=== PATIENT | male | born 1975 | race Caucasian/White ===

== ENCOUNTER 2017-06-11 22:45 | Emergency (ER) | payer BC ==
[2017-06-11] MEDS ORDERED: Labetalol 100 MG Tab ONE (23:18)
[2017-06-12 06:39] LABS: CHLORIDE,CL 108 mmol/L (98-107); SODIUM,NA 143 mmol/L (136-145)
--- NOTE | 2017-06-13 22:19 | ER ---
HISTORY OF PRESENT ILLNESS: Jordi is a 42-year-old gentleman who was seen in the emergency room with a chief complaint of hypertension. He was at home. He had checked his blood pressure, and it was elevated. The patient has history of increased blood pressure and has been on medication, also has history of insomnia. Denies history of hyperlipidemia, hypothyroidism, or COPD. ROS: No further complaints other than what was stated in the HPI PHYSICAL EXAMINATION: HEENT: Reveals a normocephalic and atraumatic gentleman. Eyes were PERRLA. Extraocular movements intact. Tympanic membranes within normal limits. Throat was clear. NECK: Supple. No masses. No adenopathy. No tracheal deviation. LUNGS: Clear to auscultation. No rales, rhonchi, or wheezing. HEART: Regular rate and rhythm. ABDOMEN: Soft and nontender. No masses. No organomegaly. Good bowel sounds. Good bowel movements. EXTREMITIES: Reveal no edema, no cyanosis, no clubbing. ASSESSMENT: Hypertension. PLAN: Increase lisinopril to 20 mg p.o. daily. Follow up in 2 weeks if not better with myself. JADYN Kang MD /[id number] MTDD
== END 2017-06-11 23:53 | disposition home or self-care (01) ==
LOC: LL.ED 22:45
DX: I10 Essential (primary) hypertension (principal); Z79.899 Other long term (current) drug therapy
CPT/HCPCS: 36415; 80048; 85025; 99283; A9270-GY

== ENCOUNTER 2024-01-26 15:52 | Emergency (ER) | payer BC | END 2024-01-26 17:24 | disposition home or self-care (01) | LOC: LL.ED 15:52 | DX: J10.1 Influenza due to other identified influenza virus with other respiratory manifestations (principal) | CPT/HCPCS: 71046; 87428-QW; 99283 ==